=== PATIENT | male | born 1995 | race Caucasian/White ===

== ENCOUNTER 2017-02-24 13:50 | Emergency (ER) | payer BC, OTHER ==
[~2017-02-24] VITALS: Ht 177.8 cm; Wt 113.4 kg
[2017-02-24 13:50] VITALS: BP 191/95
[2017-02-24] MEDS ORDERED: FLON1SPR (14:31)
[2017-02-24] MEDS ORDERED: ALBU17IN INH (14:32)
== END 2017-02-24 14:44 | disposition home or self-care (01) ==
LOC: M ED 14:23
DX: J06.9 Acute upper respiratory infection, unspecified (principal)